=== PATIENT | female | born 1960 | race Caucasian/White ===

== ENCOUNTER 2021-07-21 19:05 | Emergency (ER) | payer OTHER ==
[2021-07-21 19:25] VITALS: BP 135/89; PULSE 93; TEMP 98.3; BMI 29.0
[2021-07-21] MEDS ORDERED: MECLIZINE HCL 25 MG TABLET (FP) PO ONE (20:11)
[2021-07-21] MEDS ORDERED: SODIUM CHLORIDE 1,000 ML IV STA (20:12)
[2021-07-21] MEDS ORDERED: MECLIZINE HCL 25 MG TABLET (FP) ONE (20:35)
[2021-07-21 21:12] LABS: BASO % 1.4 % (0-2.0); EOS % 2.8 % (0-4.5); HEMOGLOBIN 13.9 GM/dL (10.7-15.3); LYMPH % 37.8 % (8-40); MCH 27.5 pg (25.7-33.7); MCHC 33.2 g/dl (32.0-36.0); MEAN PLT VOLUME 9.6 fl (7.5-11.1); MONO % 8.6 % (3.8-10.2); NEUT % 49.4 % (42.8-82.8); PLATELET COUNT 206 10^3/uL (134-434); RBC 5.07 M/mm3 (3.60-5.2); RDW 13.5 % (11.6-15.6); WHITE BLOOD COUNT 7.3 K/mm3 (4.0-10.0)
[2021-07-21 21:33] LABS: CHLORIDE 104 mmol/L (98-107); SODIUM 140 mmol/L (136-145)
[2021-07-21 21:35] LABS: CALCIUM 8.7 mg/dL (8.5-10.1)
[2021-07-21 21:36] LABS: ANION GAP 6 MMOL/L (8-16); BLOOD UREA NITROGEN 12.9 mg/dL (7-18); CO2 29 mmol/L (21-32); GLUCOSE,RANDOM 173 mg/dL (74-106)
[2021-07-21 21:39] LABS: CREATININE 0.8 mg/dL (0.55-1.3); SGOT/AST 28 U/L (15-37); SGPT/ALT 41 U/L (13-61)
[2021-07-21 21:40] LABS: BILIRUBIN,TOTAL 0.3 mg/dL (0.2-1); TOT PROT 6.6 g/dl (6.4-8.2)
[2021-07-21 21:42] LABS: ALK PHOS 103 U/L (45-117)
== END 2021-07-21 22:54 | disposition home or self-care (01) ==
LOC: JER 19:05
PROC: 3E0337Z Introduction of Electrolytic and Water Balance Substance into Peripheral Vein, Percutaneous Approach (ICD-10-PCS; principal; 2021-07-21)
DX: R42 Dizziness and giddiness (principal)
CPT/HCPCS: 36415; 80053; 84484; 85025; 96360; 99284-25